=== PATIENT | female | born 2000 | race Two or more races ===

== ENCOUNTER 2019-09-10 08:14 | Emergency (ER) | payer BC, OTHER ==
[~2019-09-10] VITALS: Ht 165.1 cm; Wt 56.7 kg
[2019-09-10 08:29] VITALS: BP 108/61
== END 2019-09-10 09:01 | disposition home or self-care (01) ==
LOC: ER 08:14
DX: S39.012A Strain of muscle, fascia and tendon of lower back, initial encounter (principal); B34.9 Viral infection, unspecified; X58.XXXA Exposure to other specified factors, initial encounter; Y93.89 Activity, other specified; Y92.89 Other specified places as the place of occurrence of the external cause; Y99.8 Other external cause status
CPT/HCPCS: 81002